=== PATIENT | male | born 1970 | race Caucasian/White ===

== ENCOUNTER 2018-06-23 13:37 | Inpatient (IN) | payer SELFPAY ==
[2018-06-22 19:15] VITALS: BP 136/65
[~2018-06-23] VITALS: Ht 180.3 cm; Wt 85.7 kg
[2018-06-23] MEDS ORDERED: SODIUM CHLORIDE 0.9% 1000ML 1,000 ML IV SCH ×2 (14:00)
[2018-06-23] MEDS ORDERED: TETANUS/DIPHTHERIA TOX ADULT 0.5 ML SYR IM ONE (14:00)
[2018-06-23] MEDS ORDERED: VANCOMYCIN 1GM/NS 250 ML 250 ML IV STA (14:03)
[2018-06-23] MEDS ORDERED: PIPER-TAZ 3.375 GM 50 ML IV STA (14:03)
[2018-06-23] MEDS ORDERED: ACETAMINOPHEN 325 MG TAB ONE (14:13)
[2018-06-23] MEDS ORDERED: ACETAMINOPHEN 325 MG TAB PO ONE (14:30)
[2018-06-23] MEDS ORDERED: SODIUM CHLORIDE 0.9% 1000ML 1,000 ML IV ONE ×2 (14:30→15:15)
[2018-06-23 14:39] LABS: ABG HCO3 17 mmol/L (23-28); ABG PCO2 25 mmHg (41-51); ABG PH 7.44 (7.31-7.41); ABG PO2 92 mmHg (80-105)
[2018-06-23 14:41] LABS: BASOPHILS % 0.2 % (0.0-1.0); EOSINOPHILS % 0.1 % (0.0-6.0); HEMATOCRIT 37.3 % (38.2-49.6); HEMOGLOBIN 12.7 g/dL (14.0-18.0); LYMPHOCYTES # (AUTO) 0.4 (1.0-3.2); LYMPHOCYTES % 3.1 % (18.0-39.1); MEAN CORPUSCULAR HEMOGLOBIN 27.7 pg (28-32); MEAN CORPUSCULAR VOLUME 81.4 fL (81-99); MONOCYTES # (AUTO) 0.6 (0.2-0.8); MONOCYTES % 4.2 % (4.4-11.3); NEUTROPHILS # (AUTO) 12.3 (2.1-6.9); NEUTROPHILS % 91.7 % (38.7-80.0); PLATELET COUNT 273 x10e3/uL (140-360); RED BLOOD COUNT 4.58 x10e6/uL (4.3-5.7); RED CELL DISTRIBUTION WIDTH 12.2 % (11.7-14.4)
[2018-06-23 14:49] LABS: INR 1.28; PROTHROMBIN TIME 16.6 seconds (11.9-14.5)
[2018-06-23 14:56] LABS: ALANINE AMINOTRANSFERASE 13 IU/L (0-55); ALBUMIN 2.3 g/dL (3.5-5.0); ALBUMIN/GLOBULIN RATIO 0.3 (0.8-2.0); ALKALINE PHOSPHATASE 101 IU/L (40-150); ANION GAP 19.5 mmol/L (8-16); BLOOD UREA NITROGEN 19 mg/dL (7-26); BUN/CREATININE RATIO 15 (6-25); CALCIUM 9.5 mg/dL (8.4-10.2); CARBON DIOXIDE 17 mmol/L (22-29); CHLORIDE 86 mmol/L (98-107); CREATINE KINASE 26 IU/L (30-200); CREATININE, SERUM 1.23 mg/dL (0.72-1.25); EST GLOMERULAR FILTRATION RATE > 60 ML/MIN (60-); GLUCOSE 365 mg/dL (74-118); MAGNESIUM 1.6 MG/DL (1.3-2.1); POTASSIUM 4.5 mmol/L (3.5-5.1)
[2018-06-23 15:02] LABS: SODIUM 118 mmol/L (136-145)
[2018-06-23] MEDS ORDERED: IBUPROFEN 600 MG TAB PO NR (15:02)
[2018-06-23] MEDS ORDERED: IBUPROFEN 600 MG TAB ONE (15:12)
--- NOTE | 2018-06-23 15:18 | Diagnostic Imaging Report ---
Exam: Left foot radiographs-3 views; right foot radiographs-3 views Clinical History: Infection, diabetic, evaluate for osteomyelitis. Comparison: Left foot radiographs 11/06/2010. Findings: Left foot: There has been amputation of the left great toe. The second toe is limited in evaluation secondary to flexion. There is a mildly sclerotic appearance of the midshaft of the second toe proximal phalanx. On the lateral view, there is soft tissue edema of the second toe with possible fragmentation of the tuft of the second toe distal phalanx. No evidence of acute fracture or malalignment. The Lisfranc alignment is maintained. There is Achilles enthesopathy. There is a plantar calcaneal spur. Right foot: There is soft tissue edema in the great toe. There is a heterogeneous lytic appearance of the great toe distal phalanx with areas of bony destruction, for example at the tuft and base. No evidence of acute fracture or malalignment. The Lisfranc alignment is maintained. There is Achilles enthesopathy. There is a plantar calcaneal spur. Impression: Findings suspicious for acute osteomyelitis of the left second toe distal phalanx and right first toe distal phalanx. Possible chronic osteomyelitis of the left second toe proximal phalanx. Bilateral forefoot / toe MRI is suggested for further evaluation. Post surgical changes status post amputation of the left great toe. Signed by: Dr. Marcelina Andino MD on 06/23/2018 3:14 PM
[2018-06-23] MEDS ORDERED: ONDANSETRON HCL INJ 2MG/ML 2ML 2 MG/ML VIAL IV PRN (16:45)
[2018-06-23] MEDS ORDERED: MORPHINE SULFATE INJ 4 MG/ML INJ 1ML IV PRN (16:45)
[2018-06-23] MEDS ORDERED: DEXTROSE 50% SYRINGE 50 ML IV PRN (16:45)
[2018-06-23 16:48] LABS: BILIRUBIN,URINE NEGATIVE (NEGATIVE); CLARITY,URINE SL CLOUDY (CLEAR); COLOR,URINE YELLOW (YELLOW); KETONES,URINE 1+ (NEGATIVE); LEUKOCYTE ESTERASE ,URINE NEGATIVE (NEGATIVE); NITRITE,URINE NEGATIVE (NEGATIVE); PROTEIN,URINE DIPSTICK 1+ (NEGATIVE); URINE UROBILINOGEN 0.2 mg/dL (0.2 - 1)
--- OUTSIDE RECORDS SUMMARY | 2018-06-23 16:48 | XMS REPORT ---
Author Author [facility] Address Unknown Phone Unavailable Care Team Providers Care Finisher Denture Name Role Phone Mark TAPIA Unavailable Unavailable Problems This patient has no known problems. Allergies, Adverse Reactions, Alerts This patient has no known allergies or adverse reactions. Medications This patient has no known medications. Results Test Description Test Time Test Comments Text Results Atomic Results Result Comments FOOT COMPLETE BILATERAL 2018-06-23 15:06:00 [place] [id number] Patient Name: MICHEL LIVINGSTON MR #: [id number] : 1970 Age/Sex: 47/M Req #: [id number] Adm Physician: Ordered by: PEGGY ARMANDO PRESENTATION MANAGER Report #: [id number] Location: ER Room/Bed: Procedure: [id number] DX/FOOT COMPLETE BILATERAL Exam Date: 06/23/18 Exam Time: 1414 REPORT STATUS: Signed Exam: Left foot radiographs-3 views; right foot radiographs-3 views Clinical History: Infection, diabetic, evaluate for osteomyelitis. Comparison: Left foot radiographs 11/06/2010. Findings: Left foot: There has been amputation of the left great toe. The second toe is limited in evaluation secondary to flexion. There is a mildly sclerotic appearance of the midshaft of the second toe proximal phalanx. On the lateral view, there is soft tissue edema of the second toe with possible fragmentation of the tuft of the second toe distal phalanx. No evidence of acute fracture or malalignment. The Lisfranc alignment is maintained. There is Achilles enthesopathy. There is a plantar calcaneal spur. Right foot: There is soft tissue edema in the great toe. There is a heterogeneous lytic appearance of the great toe distal phalanx with areas of bony destruction, for example at the tuft and base. No evidence of acute fracture or malalignment. The Lisfranc alignment is maintained. There is Achilles enthesopathy. There is a plantar calcaneal spur. Impression: Findings suspicious for acute osteomyelitis of the left second toe distal phalanx and right first toe distal phalanx. Possible chronic osteomyelitis of the left second toe proximal phalanx. Bilateral forefoot / toe MRI is suggested for further evaluation. Post surgical changes status post amputation of the left great toe. Signed by: Dr. Tani Buchanan MD on 06/23/2018 3:14 PM Dictated By: TANI BUCHANAN MD 1514 Transcribed By: FARIBA on 06/23/18 1512 COPY TO: PEGGY ARMANDO NP
[2018-06-23 16:52] LABS: AMPHETAMINES SCREEN,URINE NEGATIVE (NEGATIVE); BENZODIAZEPINES SCREEN,URINE NEGATIVE (NEGATIVE); PHENCYCLIDINE SCREEN,URINE NEGATIVE (NEGATIVE)
[2018-06-23 17:01] LABS: AMORPHOUS SEDIMENT,URINE MODERATE (FEW); BACTERIA,URINE MANY /HPF
[2018-06-23 18:07] VITALS: BP 137/69
[2018-06-23] MEDS: SODIUM CHLORIDE 0.9% 1000ML 1,000 ML IV SCH (18:10)
[2018-06-23 19:15] VITALS: BP 136/65
[2018-06-23 20:00] VITALS: BP 128/64
[2018-06-23] MEDS: PIPER-TAZ 3.375 GM 50 ML IV SCH (20:29)
[2018-06-23 21:00] VITALS: BP 125/62
[2018-06-23] MEDS ORDERED: INSULIN LISPRO 100 UNIT/1 ML 3ML VIAL SQ SCH (21:00)
[2018-06-23] MEDS: INSULIN LISPRO 100 UNIT/1 ML 3ML VIAL SQ SCH (21:22)
[2018-06-23 22:00] VITALS: BP 127/77
[2018-06-23] MEDS: HEPARIN SOD (PORCINE) 5,000 UNIT/ML VIAL SC SCH (22:18)
[2018-06-23 23:00] VITALS: BP 130/69
--- NOTE | 2018-06-23 23:16 | Diagnostic Imaging Report ---
EXAMINATION: CHEST SINGLE (PORTABLE) INDICATION: ^sob ^[id number] ^[id number] COMPARISON: None FINDINGS: AP view TUBES and LINES: None. LUNGS: Lungs are well inflated. There is no evidence of pneumonia or pulmonary edema. PLEURA: No pleural effusion or pneumothorax. HEART AND MEDIASTINUM: The cardiomediastinal silhouette is unremarkable. BONES AND SOFT TISSUES: No acute osseous lesion. Soft tissues are unremarkable. UPPER ABDOMEN: No free air under the diaphragm. IMPRESSION: No acute thoracic abnormality. Signed by: Dr. Elijah Parra MD on 06/23/2018 11:13 PM
[2018-06-23 23:24] LABS: BASOPHILS % 0.2 % (0.0-1.0); EOSINOPHILS % 0.1 % (0.0-6.0); HEMATOCRIT 30.9 % (38.2-49.6); HEMOGLOBIN 10.5 g/dL (14.0-18.0); LYMPHOCYTES # (AUTO) 0.5 (1.0-3.2); LYMPHOCYTES % 4.8 % (18.0-39.1); MEAN CORPUSCULAR HEMOGLOBIN 27.3 pg (28-32); MEAN CORPUSCULAR VOLUME 80.5 fL (81-99); MONOCYTES # (AUTO) 0.3 (0.2-0.8); NEUTROPHILS # (AUTO) 9.7 (2.1-6.9); NEUTROPHILS % 91.1 % (38.7-80.0); PLATELET COUNT 229 x10e3/uL (140-360); RED BLOOD COUNT 3.84 x10e6/uL (4.3-5.7); RED CELL DISTRIBUTION WIDTH 12.1 % (11.7-14.4)
[2018-06-23 23:39] LABS: CREATINE KINASE 29 IU/L (30-200)
[2018-06-24] VITALS (22 sets, daily range): BP systolic 93–166; BP diastolic 54–89
--- NOTE | 2018-06-24 00:09 | Diagnostic Imaging Report ---
EXAM: CT right lower extremity WITHOUT contrast INDICATION: ^r/o necrotizing facitis COMPARISON: Foot x-ray dated 06/23/2018 TECHNIQUE: Below knee right lower extremity was scanned utilizing a multidetector helical scanner without administration of IV contrast. Coronal and sagittal reformations were obtained. Routine protocol was performed. IV CONTRAST: None COMPLICATIONS: None RADIATION DOSE: Total DLP: 319.04 mGy*cm Estimated effective dose: (DLP x 0.015 x size factor) mSv CTDIvol has been reviewed. It is below the limits set by the Radiation Protocol Committee (RPC). FINDINGS: No evidence of acute fracture or dislocation. No periosteal reaction or erosion visualized in the right tibial/fibula. Distal medial tibial sclerotic focus, likely a bone island. Right great toe distal phalanx cortical erosions with subluxation at the interphalangeal joint as well as soft tissue swelling. Vascular calcifications. No soft tissue or intramuscular gas visualized. Mild skin thickening and subcutaneous fat stranding of the distal right leg (series 3, image 170). IMPRESSION: 1. Right great toe swelling with underlying erosive changes of the distal phalanx. Osteomyelitis is suspected as also noted on prior foot x-ray. 2. Mild skin thickening and subcutaneous fat stranding of the distal right leg, extending to the foot, suspicious for cellulitis. No evidence of necrotizing fasciitis. Signed by: Dr. Elijah Parra MD on 06/24/2018 12:05 AM
[2018-06-24 00:13] LABS: ANION GAP 12.3 mmol/L (8-16); BLOOD UREA NITROGEN 17 mg/dL (7-26); BUN/CREATININE RATIO 18 (6-25); CALCIUM 8.2 mg/dL (8.4-10.2); CARBON DIOXIDE 20 mmol/L (22-29); CHLORIDE 96 mmol/L (98-107); CREATININE, SERUM 0.94 mg/dL (0.72-1.25); EST GLOMERULAR FILTRATION RATE > 60 ML/MIN (60-); GLUCOSE 249 mg/dL (74-118)
[2018-06-24 00:23] LABS: SODIUM 125 mmol/L (136-145)
[2018-06-24 00:24] LABS: POTASSIUM 3.3 mmol/L (3.5-5.1)
[2018-06-24] MEDS ORDERED: POTASSIUM CHLORIDE 20MEQ/100ML 200 ML IV ONE (00:45)
[2018-06-24] MEDS: PIPER-TAZ 3.375 GM 50 ML IV SCH ×5 (01:37→23:30)
[2018-06-24] MEDS: SODIUM CHLORIDE 0.9% 1000ML 1,000 ML IV SCH ×3 (01:38→16:34)
[2018-06-24] MEDS: ACETAMINOPHEN 325 MG TAB PO PRN ×2 (01:38→16:55)
[2018-06-24] MEDS: VANCOMYCIN 1GM/NS 250 ML 250 ML IV SCH ×3 (02:17→21:39)
--- NOTE | 2018-06-24 02:56 | History and Physical ---
CHIEF COMPLAINT: Leg pain and swelling. HISTORY OF PRESENT ILLNESS: Mr. Smith is a 47-year-old male, who presented to the emergency room with pain in the leg. He reports that the swelling, pain, and abscess in the leg has been going on for quite some time. He does not go to any physician, does not have any established medical care. He is diabetic, however, he does not take his medications regularly. He denies any complaints of chest pain. He was having some nausea. In the emergency room, the patient was tachypneic and metabolic acidosis. He received 2 L of fluid. His anion gap was 19.5 around 2 o'clock and his lactate was 20.9. He is now stable, breathing well, never required vasopressors. Blood pressure is stable. Temperature was 103.1 in the emergency room. REVIEW OF SYSTEMS: GENERAL: No fevers or chills. HEAD: Denies any head trauma. ENT: Denies any earache. CVS: Denies any chest pain. RESPIRATORY: Denies any shortness of breath. The rest is negative except as in the HPI. PAST MEDICAL HISTORY: Diabetes. PAST SURGICAL HISTORY: None. FAMILY AND SOCIAL HISTORY: He does not smoke, does not drink. PHYSICAL EXAMINATION: VITAL SIGNS: Temperature 98.7, pulse of 86, T-max of 103. CHEST: Clear to auscultation bilaterally. HEENT: Atraumatic, normocephalic. ABDOMEN: Soft, nontender, nondistended. EXTREMITIES: Right leg swelling, edema, and purulence. Left leg, no edema. LABS: Sodium 118, potassium 4.5, chloride 86, BUN 19, creatinine 1.23. Lactate 20.9. White count of 13.44, hemoglobin 12.7, platelets 273. Foot x-ray was done, which showed evidence of osteomyelitis in the left 2nd toe distal phalanx and right distal toe. ASSESSMENT: Mr. Smith is a 47-year-old male admitted with leg pain, swelling, severe sepsis due to osteomyelitis of the right toe and foot. CURRENT PROBLEMS: 1. Severe sepsis. 2. Osteomyelitis of the toe and foot. 3. Diabetes, uncontrolled. PLAN: 1. Continue the patient on IV fluids. 2. Recheck labs. 3. ID consult. 4. Vancomycin and Zosyn. 5. Podiatry consult. 6. Morphine for pain control. 7. Zofran p.rChelsean. 8. Heparin subcu for DVT prophylaxis. MD MONAE Black/LAURA /[id number]
[2018-06-24 07:21] LABS: BASOPHILS % 0.2 % (0.0-1.0); HEMATOCRIT 30.3 % (38.2-49.6); LYMPHOCYTES # (AUTO) 0.6 (1.0-3.2); LYMPHOCYTES % 6.2 % (18.0-39.1); MEAN CORPUSCULAR HEMOGLOBIN 27.2 pg (28-32); MEAN CORPUSCULAR VOLUME 82.3 fL (81-99); MONOCYTES # (AUTO) 0.5 (0.2-0.8); MONOCYTES % 5.2 % (4.4-11.3); NEUTROPHILS # (AUTO) 8.3 (2.1-6.9); NEUTROPHILS % 87.5 % (38.7-80.0); PLATELET COUNT 216 x10e3/uL (140-360); RED BLOOD COUNT 3.68 x10e6/uL (4.3-5.7); RED CELL DISTRIBUTION WIDTH 12.2 % (11.7-14.4)
[2018-06-24 07:39] LABS: ALANINE AMINOTRANSFERASE 14 IU/L (0-55); ALBUMIN 1.8 g/dL (3.5-5.0); ALBUMIN/GLOBULIN RATIO 0.3 (0.8-2.0); ALKALINE PHOSPHATASE 83 IU/L (40-150); ANION GAP 13.4 mmol/L (8-16); BLOOD UREA NITROGEN 16 mg/dL (7-26); BUN/CREATININE RATIO 19 (6-25); CALCIUM 8.3 mg/dL (8.4-10.2); CARBON DIOXIDE 20 mmol/L (22-29); CHLORIDE 95 mmol/L (98-107); CREATININE, SERUM 0.85 mg/dL (0.72-1.25); EST GLOMERULAR FILTRATION RATE > 60 ML/MIN (60-); GLUCOSE 264 mg/dL (74-118); POTASSIUM 4.4 mmol/L (3.5-5.1); SODIUM 124 mmol/L (136-145)
[2018-06-24 07:49] LABS: CREATINE KINASE MB 0.4 ng/mL (0-5.0)
[2018-06-24] MEDS: HEPARIN SOD (PORCINE) 5,000 UNIT/ML VIAL SC SCH ×2 (08:47→20:48)
[2018-06-24] MEDS: INSULIN LISPRO 100 UNIT/1 ML 3ML VIAL SQ SCH ×5 (08:49→20:48)
[2018-06-24 15:04] LABS: FREE T4 (FREE THYROXINE) 1.11 ng/dL (0.9-1.8); THYROID STIMULATING HORMONE 1.418 uIU/mL (0.350-4.940)
[2018-06-24 17:48] LABS: CREATINE KINASE MB 0.4 ng/mL (0-5.0)
--- NOTE | 2018-06-24 20:05 | Consultation ---
DATE OF CONSULTATION: 06/24/2018 Urology Consultation REASON FOR CONSULTATION: Urinary retention for 500 mL. HISTORY OF PRESENT ILLNESS: Sincere Smith is a 47-year-old man, who was admitted with cellulitis and infection of the foot. The patient had a difficult time urinating, was found to be in urinary retention via bladder scanner with 500 mL. A 12-Samoan Soto catheter was placed supposedly because of urethral meatus stenosis and 500 mL of clear urine was obtained. The patient has also had some fevers. The patient denies previous history of hematuria, dysuria, drug infections, or urolithiasis. Denies ever seeing a urologist. PAST MEDICAL AND SURGICAL HISTORY: 1. Status post left toe amputation. 2. Diabetes mellitus out of control. CURRENT MEDICATIONS: Please refer to the MAR. ALLERGIES: PLEASE REFER TO THE MAR. SOCIAL HISTORY: The patient denies smoking, ethanol, and drug use. The patient works at [employer]. FAMILY HISTORY: Noncontributory to the active urological problems. REVIEW OF SYSTEMS: Discussed as above in history of present illness and past medical history, otherwise negative for all systems. PHYSICAL EXAMINATION: GENERAL: Very pleasant, healthy-appearing man, lying in bed, no apparent distress. VITAL SIGNS: His temperature is 100.3. His vital signs are stable. ABDOMEN: Soft, nondistended, and nontender without costovertebral angle tenderness. Kidneys not palpable without hepatosplenomegaly. No obvious evidence of hernia. GENITOURINARY: Testes descended bilaterally. Testes and epididymis are nontender. The patient has an uncircumcised male phallus with a normal meatus without any evidence of meatal stenosis with a very small 12-Samoan Soto catheter in place draining clear urine out. For the remaining physical examination systems, please refer to the admission history and physical in the chart. LABORATORY STUDIES: Urine culture is pending. White blood cell count is 9530. It was high as 13,440 upon admission, hemoglobin of 10. The patient's sodium is low at 124. His glucoses are high in upper 200s. Creatinine is normal at 0.85. Calcium is low at 8.3. Urinalysis shows 6 to 10 rbc's with many bacteria. There is no urologically relevant radiographic studies in the computer. ASSESSMENT: 1. Urinary retention for 500 mL. 2. Leukocytosis, improved. 3. Anemia. 4. Hyponatremia. 5. Hypocalcemia. 6. Fevers. 7. Soto catheter in situ. 8. Microhematuria. PLAN: 1. Recommend waiting the culture and sensitivity of the urine in treating any infection of present. 2. Leave the Soto catheter in place at the present time. The patient should be discharged home with Soto catheter when he is medically ready and follow up in the office for Soto catheter management and voiding trial as an outpatient. Thank you very much for involving us in the care of your patient. We will be happy to follow him as needed. Please call us again during this hospitalization should any urological intervention be warranted. Antonio Lubin MD [place]/MODL /[id number]
[2018-06-24] MEDS ORDERED: INSULIN GLARGINE 100 UNITS/ML VIAL SQ SCH (21:00)
--- NOTE | 2018-06-24 22:31 | Consultation ---
DATE OF CONSULTATION: 06/24/2018 Endocrine Consultation This is a patient of Dr. Burnette. Thank you very much referring this patient. HISTORY OF PRESENT ILLNESS: This is a 47-year-old white male, gentleman, who was referred to me for evaluation of uncontrolled diabetes mellitus. The patient reportedly is a known diabetic for almost 11 years. He is noncompliant in taking the medication. He was taking the oral hypoglycemics and has not taken any medication for several months. The patient comes to the hospital with history of cellulitis of the right foot and osteomyelitis of the toe. He also has history of hypertension. PHYSICAL EXAMINATION: GENERAL: Today, the patient is alert, awake, and a little bit apprehensive. VITAL SIGNS: His heart rate is around 78, blood pressure is 146/80 mmHg. HEENT: Essentially unremarkable. Thyroid is palpable. Clinically, he is near euthyroid. CHEST: Bilateral vesicular breathing. No rales. CARDIOVASCULAR: First and second heart sounds. There is no third or fourth heart sounds . EXTREMITIES: The patient has diabetic sensory neuropathy in both lower extremities. He has lost his toe on the left side and he has osteomyelitis of the right toe with cellulitis of the foot. LABORATORY DATA: Blood sugar at the time of admission was 365, anion gap was 19.5. Presently, the blood sugar is 264 to 220. IMPRESSION: 1. Diabetes mellitus type 2, uncontrolled with complication, noncompliance in taking the medications. The patient does not have any medical insurance. 2. Cellulitis of the right foot. 3. Osteomyelitis of the right toe. 4. Hypertension. PLAN: The plan at this time is to do hemoglobin A1c and thyroid function tests. Monitor his blood sugars closely and I put him on a combination of Lantus and Humalog insulin. The patient needs case management consult. I have also discussed in detail with the patient's . Thanks again for referring this patient. I will be following this patient with you. MD EJ Malin/BYRONL /[id number]
[2018-06-25] VITALS (9 sets, daily range): BP systolic 132–146; BP diastolic 67–76
--- NOTE | 2018-06-25 02:02 | History and Physical ---
REASON FOR CONSULTATION: Infection of the foot. HISTORY OF PRESENT ILLNESS: This patient is a 47-year-old white male with history of diabetes mellitus, history of neuropathy, amputation of his big toe on the right before. The patient comes in with redness and swelling of his right foot. He states he has been having problem with his feet with infection for the last few weeks and then progressively worse mainly on the right leg and the right foot. The patient came to the emergency room where he was admitted. There was no exposure to water. No trauma that he can think of. When he first came, he was tachypneic, tachycardic. He received 2 L of normal saline. His anion gap was 19.5. He is admitted to intensive care unit. He is feeling better now. PAST MEDICAL HISTORY: Diabetes mellitus with neuropathy, osteomyelitis. PAST SURGICAL HISTORY: Amputation of his right big toe before. The patient comes in with infection of his right foot now. He did have amputation of his left big toe before. LABORATORY DATA: Reviewed. SOCIAL HISTORY: There is no smoking, drug abuse, or alcohol abuse. FAMILY HISTORY: Diabetes mellitus. His cultures back in June 23 of Streptococcus hemolyticus, gram-negative bacilli from the wound. White count is 9.5, hemoglobin of 10. Sodium 124, potassium 4.4 and creatinine 0.85. IMPRESSION: 1. Cellulitis of the right foot sepsis. 2. Hyponatremia. 3. Diabetic with neuropathy, Charcot joint. 4. Diabetes not controlled. 5. Osteomyelitis. 6. Concern about peripheral vascular disease. Agree with vancomycin and Zosyn for vancomycin trough. Obtain sedimentation rate, C-reactive protein. Obtain MRI of the foot. Vascular workup. We will follow. MD DL Dickson/LAURA /[id number]
[2018-06-25] MEDS: SODIUM CHLORIDE 0.9% 1000ML 1,000 ML IV SCH ×4 (02:03→22:32)
[2018-06-25] MEDS: PIPER-TAZ 3.375 GM 50 ML IV SCH ×4 (05:55→23:26)
[2018-06-25] MEDS: INSULIN LISPRO 100 UNIT/1 ML 3ML VIAL SQ SCH ×7 (09:28→21:00)
[2018-06-25] MEDS: VANCOMYCIN 1GM/NS 250 ML 250 ML IV SCH ×2 (10:37→21:00)
[2018-06-25] MEDS: HEPARIN SOD (PORCINE) 5,000 UNIT/ML VIAL SC SCH ×2 (10:56→21:00)
--- NOTE | 2018-06-25 17:51 | Consultation ---
DATE OF CONSULTATION: 06/25/2018 REASON FOR CONSULTATION: Cellulitis of right foot. HISTORY OF PRESENT ILLNESS: Mr. Smith is a very pleasant 47-year-old male admitted through the ED secondary to diabetic foot complications, uncontrolled diabetes as well. He does admit that he has been battling the same and has to some extent neglected the ulcer and ultimately it has led to significant infection, which ultimately led to him presenting to ED. PAST MEDICAL HISTORY: Uncontrolled diabetes, neuropathy. Previous foot complications with previous digital amputation from the contralateral side. MEDICATIONS: Please see MAR. ALLERGIES: NO KNOWN DRUG ALLERGIES. SOCIAL HISTORY: Denies any alcohol, tobacco, or illicit drug use. FAMILY HISTORY: Diabetes. PHYSICAL EXAMINATION: VITAL SIGNS: T max was 99 within 24-hour period, blood pressure 146/76, pulse is 105, respiratory rate is 21, and pulse ox 100%. GENERAL: A and O x3, NAD. HEENT: Normocephalic, atraumatic. ABDOMEN: Soft, nontender, and nondistended. RESPIRATORY: Symmetrical expansion. No distress. PSYCHIATRIC: Normal affect. EXTREMITIES: Indeed erythema, edema associated to his right foot with an ulceration to the plantar medial aspect of the great toe. No active drainage, but indeed significant hyperkeratotic tissue and fibrotic tissue and pus to the wound bed. IMAGING: X-rays, no evidence of necrotizing fascitis. Bone has changes consistent with osteomyelitis. ASSESSMENT: Chronic neglected diabetic foot ulceration with at this point cellulitis. PLAN: Recommend continued medical management of the same. We will try and avoid digital amputation and perhaps more proximal amputation. Educated on proper glycemic control. He has Endocrinology in the case. Has multiple other specialities involved. He is currently in the ICU, needs to be stabilized. He is septic secondary to aforementioned. We will continue to follow and monitor. LETA Romero/LAURA /[id number]
[2018-06-25] MEDS: INSULIN GLARGINE 100 UNITS/ML VIAL SQ SCH (21:00)
[2018-06-26] VITALS (8 sets, daily range): BP systolic 130–145; BP diastolic 62–71
[2018-06-26] MEDS: PIPER-TAZ 3.375 GM 50 ML IV SCH ×2 (05:30→12:05)
[2018-06-26] MEDS: INSULIN LISPRO 100 UNIT/1 ML 3ML VIAL SQ SCH ×7 (07:30→22:24)
[2018-06-26] MEDS: SODIUM CHLORIDE 0.9% 1000ML 1,000 ML IV SCH (09:24)
[2018-06-26] MEDS: VANCOMYCIN 1GM/NS 250 ML 250 ML IV SCH (09:24)
[2018-06-26] MEDS: HEPARIN SOD (PORCINE) 5,000 UNIT/ML VIAL SC SCH ×2 (09:27→22:23)
[2018-06-26] MEDS ORDERED: CEFTRIAXONE SOD 1 GM VIAL IV SCH (12:15)
[2018-06-26] MEDS: CEFTRIAXONE SOD 1 GM/NS 50 ML 50 ML IV SCH ×2 (13:33→22:21)
--- NOTE | 2018-06-26 17:13 | Progress Note ---
DATE: 06/26/2018 SUBJECTIVE: The patient has no new complaints. OBJECTIVE: VITAL SIGNS: T-max today of 100.3 degrees Fahrenheit. Most recent temperature 99.9. Blood pressure is 137/66, and respiratory rate is 18. Problem focused examination, foot continues to improve, albeit the right foot. Decrease in erythema, erythema seems to be regressing. Ulcerative lesion, relatively stable, appears to have fibrous grandular type of wound bed. No active drainage. Bleeds well upon stimulating the same. DIAGNOSTIC DATA: Morganella morganii and group Strep A right foot ulcer. Blood cultures are pending. Urinalysis is negative. LABS: Hemoglobin A1c is 11.3 and recent blood checks are at the maximum of 172, consistently in the 130s. ASSESSMENT: 1. Cellulitis with diabetic ulceration, right foot. 2. Uncontrolled diabetes. 3. Diabetic peripheral neuropathy. PLAN: Continue current recommendations, local wound care. Recommend Betadine wet-to-dry for the time being. At this point, seems like he will respond with local wound care and IV antibiotics. We will continue to follow and monitor. LETA Romero/LAURA /[id number]
[2018-06-26] MEDS: INSULIN GLARGINE 100 UNITS/ML VIAL SQ SCH (22:25)
[2018-06-27] VITALS (8 sets, daily range): BP systolic 119–140; BP diastolic 60–67
[2018-06-27 05:42] LABS: BASOPHILS % 0.1 % (0.0-1.0); EOSINOPHILS # (AUTO) 0.1 (0.0-0.4); EOSINOPHILS % 1.1 % (0.0-6.0); HEMATOCRIT 27.7 % (38.2-49.6); HEMOGLOBIN 9.2 g/dL (14.0-18.0); LYMPHOCYTES # (AUTO) 1.1 (1.0-3.2); LYMPHOCYTES % 13.3 % (18.0-39.1); MEAN CORPUSCULAR HEMOGLOBIN 27.3 pg (28-32); MEAN CORPUSCULAR HGB CONC 33.2 g/dL (31-35); MEAN CORPUSCULAR VOLUME 82.2 fL (81-99); MONOCYTES # (AUTO) 0.3 (0.2-0.8); MONOCYTES % 3.9 % (4.4-11.3); NEUTROPHILS # (AUTO) 6.6 (2.1-6.9); NEUTROPHILS % 81.1 % (38.7-80.0); PLATELET COUNT 295 x10e3/uL (140-360); RED BLOOD COUNT 3.37 x10e6/uL (4.3-5.7); RED CELL DISTRIBUTION WIDTH 12.9 % (11.7-14.4)
[2018-06-27 06:22] LABS: ALANINE AMINOTRANSFERASE 62 IU/L (0-55); ALBUMIN 1.6 g/dL (3.5-5.0); ALBUMIN/GLOBULIN RATIO 0.3 (0.8-2.0); ALKALINE PHOSPHATASE 206 IU/L (40-150); ANION GAP 9.1 mmol/L (8-16); BLOOD UREA NITROGEN 5 mg/dL (7-26); BUN/CREATININE RATIO 6 (6-25); CALCIUM 8.6 mg/dL (8.4-10.2); CARBON DIOXIDE 27 mmol/L (22-29); CHLORIDE 100 mmol/L (98-107); CHOL/HDL RATIO 5.4 (3.9-4.7); CHOLESTEROL 103 MD/DL (0-199); CREATININE, SERUM 0.77 mg/dL (0.72-1.25); EST GLOMERULAR FILTRATION RATE > 60 ML/MIN (60-); GLUCOSE 167 mg/dL (74-118); HDL CHOLESTEROL 19 MG/DL (40-60); LDL CHOLESTEROL 64 MG/DL (60-130); POTASSIUM 4.1 mmol/L (3.5-5.1); SODIUM 132 mmol/L (136-145); TRIGLYCERIDES 100 MG/DL (0-149)
[2018-06-27] MEDS: INSULIN LISPRO 100 UNIT/1 ML 3ML VIAL SQ SCH ×7 (07:30→21:00)
[2018-06-27] MEDS: HEPARIN SOD (PORCINE) 5,000 UNIT/ML VIAL SC SCH ×2 (08:56→21:00)
[2018-06-27] MEDS: CEFTRIAXONE SOD 1 GM/NS 50 ML 50 ML IV SCH ×2 (09:13→21:00)
--- NOTE | 2018-06-27 20:08 | Progress Note ---
DATE: 06/27/2018 SUBJECTIVE: No new complaints. Asking whether he is recommended weightbear however to the extremity that has an ulceration. OBJECTIVE: GENERAL: A and O x3, NAD. VITAL SIGNS: Stable with 24-hour T-max of 99.5. PROBLEM FOCUSED EXAMINATION: Foot seems to be improving. Erythema and edema seems to be regressing. Digits seems to be decreasing in erythema and edema as well. There is a diabetic lesion to the plantar medial aspect of the great toe, improving as well. Subtle drainage emanates from the site. ASSESSMENT: Diabetic foot infection within the line of osteomyelitis. Cellulitis is improving, particularly the lateral. PLAN: Continue local wound care. Recommend offloading albeit nonweightbearing. Orders were given, however written for the same. We will continue to follow and monitor. LETA Romero/BYRONL /[id number]
[2018-06-27] MEDS: INSULIN GLARGINE 100 UNITS/ML VIAL SQ SCH (21:00)
[2018-06-28] VITALS (8 sets, daily range): BP systolic 118–140; BP diastolic 61–72
[2018-06-28] MEDS: INSULIN LISPRO 100 UNIT/1 ML 3ML VIAL SQ SCH ×7 (07:30→20:55)
[2018-06-28] MEDS: CEFTRIAXONE SOD 1 GM/NS 50 ML 50 ML IV SCH ×2 (09:16→20:53)
[2018-06-28] MEDS: HEPARIN SOD (PORCINE) 5,000 UNIT/ML VIAL SC SCH ×2 (09:19→20:54)
[2018-06-28] MEDS: INSULIN GLARGINE 100 UNITS/ML VIAL SQ SCH (20:54)
[2018-06-29] VITALS: BP 132/62
[2018-06-29 05:24] VITALS: BP 138/75
[2018-06-29 07:54] VITALS: BP 130/69
[2018-06-29 08:00] VITALS: BP 130/69
[2018-06-29] MEDS: INSULIN LISPRO 100 UNIT/1 ML 3ML VIAL SQ SCH ×6 (08:32→17:46)
[2018-06-29] MEDS: CEFTRIAXONE SOD 1 GM/NS 50 ML 50 ML IV SCH (08:33)
[2018-06-29] MEDS: HEPARIN SOD (PORCINE) 5,000 UNIT/ML VIAL SC SCH (08:35)
[2018-06-29] MEDS ORDERED: Insulin Lispro SQ (08:57)
[2018-06-29] MEDS ORDERED: CIPROFLOXACIN750 MG PO (08:57)
[2018-06-29] MEDS ORDERED: Insulin Glargine SQ (08:57)
[2018-06-29] MEDS ORDERED: ATORVASTATIN CA20 MG PO (09:00)
[2018-06-29] MEDS ORDERED: ONDANSETRON HCL 4 MG ORAL DISINTEGRATING TAB PO PRN (10:15)
[2018-06-29 11:47] VITALS: BP 141/73
[2018-06-29 15:59] VITALS: BP 126/70
[2018-06-29] MEDS ORDERED: NOVOLIN N100 UNIT/1 SC ×2 (17:37→17:39)
[2018-06-29] MEDS ORDERED: HUMULIN R100 UNIT/2 SC (17:44)
[2018-06-29] MEDS ORDERED: ATORVASTATIN 40 MG TAB PO SCH (21:00)
[2018-06-29] MEDS ORDERED: ATORVASTATIN 20 MG TAB PO SCH (21:00)
--- NOTE | 2018-06-30 05:20 | Discharge Summary ---
ADDENDUM: Mr. Smith will also follow up with Dr. Gomez. Will not be able to return to work until cleared by Dr. Gomez. MD SADE Clark/LAURA /[id number]
--- NOTE | 2018-06-30 05:26 | Discharge Summary ---
HOSPITAL COURSE: The patient admitted to the emergency room with pain in the leg, swelling. History of diabetes, not taking his medications regularly, it was felt to be septic with strep bacteremia and osteomyelitis, group A. Temperature as high as 103. He is a nonsmoker. He is also hyponatremic with a sodium of 118. The patient gradually improved. He was found to have osteomyelitis of the 2nd toe distal phalanx, right foot. Cultures of the toe grew Morganella and strep group A, which was also grown from the blood. The patient was treated with Rocephin gradually improved. He was found to have presumed neurogenic bladder. The Soto catheter was placed, this will be evaluated as an outpatient. Fever, he defervesced. The sodium was corrected. He was seen by Dr. Giordano and started on insulin. Hemoglobin A1C was 11.3. Had anemia of chronic disease. He is anemic with a hemoglobin of 9.2, felt to be anemia of chronic disease. CT of the foot revealed swelling of the right toe, erosive changes of the great toe and cellulitis. The patient gradually improved. He has discharge instructions to go to [facility] and also to follow up with Dr. Lubin. With regard to his bladder, he was given a prescription for Cipro 750 b.i.d. to complete an eight week course. Lantus insulin 24 units at night, lispro insulin 12 units t.i.d., before meals, this may be modified by Dr. Giordano. Because of drug interaction and normal cholesterol, he was not given a prescription for Lipitor. His LDL cholesterol was 64, HDL was low at 19. He hops to return to work at [employer]. MD SADE Clark/MODL /[id number]
== END 2018-06-29 18:30 | disposition home or self-care (01) | DRG 871 ==
LOC: ER 13:37 → ERHOLD 16:43 → ICU 17:21 → MED/SURG3 06-25 13:22
PROVIDERS: ADMIT Internal Medicine; ATTEND Internal Medicine
DX: A41.9 Sepsis, unspecified organism (principal); E11.10 Type 2 diabetes mellitus with ketoacidosis without coma; E87.1 Hypo-osmolality and hyponatremia; E87.2 Acidosis; L03.115 Cellulitis of right lower limb; M86.171 Other acute osteomyelitis, right ankle and foot; E11.69 Type 2 diabetes mellitus with other specified complication; R65.20 Severe sepsis without septic shock; B95.5 Unspecified streptococcus as the cause of diseases classified elsewhere; Z79.4 Long term (current) use of insulin; B95.0 Streptococcus, group A, as the cause of diseases classified elsewhere; B96.89 Other specified bacterial agents as the cause of diseases classified elsewhere; N31.9 Neuromuscular dysfunction of bladder, unspecified; D63.8 Anemia in other chronic diseases classified elsewhere; Z91.14 Patient's other noncompliance with medication regimen; E11.40 Type 2 diabetes mellitus with diabetic neuropathy, unspecified; I10 Essential (primary) hypertension; R33.9 Retention of urine, unspecified; N35.811 Other urethral stricture, male, meatal; E83.51 Hypocalcemia; R31.29 Other microscopic hematuria; E11.51 Type 2 diabetes mellitus with diabetic peripheral angiopathy without gangrene
CPT/HCPCS: 36415; 36600; 71045; 80048; 80053; 80061; 80202; 80307; 81001; 82550; 82553; 82805; 82948; 83036; 83605; 83735; 84439; 84443; 84484; 85025; 85610; 85730; 87040; 87071; 87086; 87186; 87205; 90471; 90714; 93005; 93306; 93970; 99284; J0696; J1644; J1815; J2270; J2543; J3370; J3480; J7030